=== PATIENT | female | born 1970 | race American Indian/Alaskan Native ===

== ENCOUNTER 2018-02-07 06:59 | Outpatient (CLI) | payer BC ==
--- NOTE | 2018-02-07 09:20 | Ultrasound Report ---
Thyroid ultrasound: Goiter. Right lobe measures 10 x 10 x 43 mm in the left lobe measures 12 x 17 x 43 mm. The isthmus has a thickness of 4 mm. The echo pattern of both lobes is unremarkable. No focal mass noted. Impression: The overall size of the thyroid is considered within normal range. Unremarkable echo pattern.
== END 2018-02-07 07:00 | disposition home or self-care (01) ==
LOC: US 06:59
DX: E04.9 Nontoxic goiter, unspecified (principal)
CPT/HCPCS: 76536